=== PATIENT | male | born 1935 | race Caucasian/White ===

== ENCOUNTER → 2016-07-03 | Outpatient (CLI) | payer MEDICARE | LOC: GMAB 12:06 | PROVIDERS: ATTEND Family Medicine | DX: N18.4 Chronic kidney disease, stage 4 (severe) (principal) ==

== ENCOUNTER → 2016-11-14 | Outpatient (CLI) | payer MEDICARE | END | disposition home or self-care (01) | LOC: GMAB 11:34 | PROVIDERS: ATTEND Family Medicine | DX: Z12.5 Encounter for screening for malignant neoplasm of prostate (principal); I10 Essential (primary) hypertension | CPT/HCPCS: 84443; G0103 ==

== ENCOUNTER → 2017-02-06 | Outpatient (CLI) | payer MEDICARE | END | disposition home or self-care (01) | LOC: LAB.O 09:35 | PROVIDERS: ATTEND Internal Medicine Rheumatology | DX: Z79.899 Other long term (current) drug therapy (principal); M15.0 Primary generalized (osteo)arthritis; M81.0 Age-related osteoporosis without current pathological fracture ==

== ENCOUNTER → 2017-04-16 | Outpatient (CLI) | payer MEDICARE ==
--- NOTE | 2017-04-17 07:46 | US ---
EXAM DESCRIPTION: Renal: Ultrasound. CLINICAL HISTORY: RENAL CYST COMPARISON: CT scan of abdomen and pelvis 03/29/2015. TECHNIQUE: Transcutaneous scanning: Two-dimensional and Doppler modes. FINDINGS: Right kidney measures 10.8 x 6.0 x 5.7 cm; mid-renal cortical thickness 13 mm . Increased echogenicity of the cortex more than the liver. 1.7 x 1.5 cm anechoic cyst with well-defined morrell and posterior acoustic enhancement. Another smaller cyst 8mm diameter. 4.3 mm echogenic cortical structure may represent a stone. No hydronephrosis No calcifications. Lobulated contour of the kidney with no perinephric fluid. Normal vascularity. Proximal ureter not visualized. Left kidney measures 10.9 x 7.4 x 6.8 cm; mid-renal cortical thickness 13 mm.. Increased echogenicity of the cortex equal to that of the liver. Multiple cortical cysts: 2.7 x 2.3 cm, 1.8 x 1.9 cm, and a septated cyst measuring 3.0 x 2.9 cm. No hydronephrosis. No calcifications. Lobulated contour of the kidney with no perinephric fluid. Normal vascularity.. Proximal ureter not visualized. Urinary bladder not visualized. Abdominal Aorta diameter not measured. IMPRESSION: 1. Bilateral kidneys show increased cortical echogenicity and lobulated capsule. Minimal atrophy in the right cortex. 2. Bilateral renal cysts. Septated cyst in the left kidney does not appear calcified on prior CT scan. CT scan be repeated clinically indicated. 3. Possible 4.3 mm stone in the right kidney. Electronically signed by: Guille Walden MD 04/17/2017 7:44 AM CDT
== END | disposition home or self-care (01) ==
LOC: US 08:13
PROVIDERS: ATTEND Urology
DX: N28.1 Cyst of kidney, acquired (principal)

== ENCOUNTER → 2017-10-01 | Outpatient (CLI) | payer MEDICARE | LOC: GMAB 11:06 | PROVIDERS: ATTEND Family Medicine | DX: N18.4 Chronic kidney disease, stage 4 (severe) (principal) ==

== ENCOUNTER → 2018-08-13 | Outpatient (CLI) | payer MEDICARE | LOC: LAB.O 07:20 | PROVIDERS: ATTEND Internal Medicine Rheumatology | DX: M15.0 Primary generalized (osteo)arthritis (principal); M81.0 Age-related osteoporosis without current pathological fracture; Z79.899 Other long term (current) drug therapy ==

== ENCOUNTER → 2019-07-01 | Outpatient (CLI) | payer MEDICARE, OTHER | LOC: LAB.O 07:09 | PROVIDERS: ATTEND Family Medicine | DX: I10 Essential (primary) hypertension (principal); E78.5 Hyperlipidemia, unspecified; R53.83 Other fatigue ==

== ENCOUNTER → 2020-02-24 | Outpatient (CLI) | payer MEDICARE, OTHER ==
--- NOTE | 2020-02-24 21:09 | RAD ---
EXAM DESCRIPTION: Lumbar Spine 3 Views CLINICAL HISTORY: LOW BACK PAIN COMPARISON: None Available. TECHNIQUE: Three views lumbar spine FINDINGS: Three views of the spine demonstrate normal alignment with marked degenerative disc narrowing and vacuum phenomenon involving the lower four disc spaces and less severe changes noted at L1-2. Previous prostatic seeding noted. There is grade 1 degenerative anterolisthesis at L4-5 estimated at approximately 5 mm and a similar amount of retrolisthesis evident at the L3-4 level. Marked facet sclerosis at L5-S1 L4-5 and to a lesser degree L3-4 noted. SI joints are unremarkable. No additional abnormalities noted. 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 Marked disc narrowing and vacuum phenomenon at the lower four disc spaces noted. Electronically signed by: Jae Liu MD 02/24/2020 9:07 PM CDT
== END ==
LOC: YCFC.O 10:24
PROVIDERS: ATTEND Family Medicine
DX: M51.36 Other intervertebral disc degeneration, lumbar region (principal); M47.896 Other spondylosis, lumbar region; M43.16 Spondylolisthesis, lumbar region; M51.86 Other intervertebral disc disorders, lumbar region

== ENCOUNTER → 2020-03-13 | Outpatient (CLI) | payer MEDICARE, OTHER ==
--- NOTE | 2020-03-14 07:27 | CT ---
TECHNIQUE: Axial images of the lumbar spine were obtained with multiple reconstructions provided. This exam was performed according to our departmental dose-optimization program, which includes automated exposure control, adjustment of the mA and/or kV according to patient size and/or use of iterative reconstruction technique. CLINICAL HISTORY PROVIDED: RADICULOPATHY LUMBAR REGION COMPARISON: 03/29/2015 FINDINGS: Five lumbar type vertebral bodies are present. Alignment: Degenerative grade 1 anterolisthesis L4 on L5. Fracture: None present. Paraspinal Soft Tissues/ Retroperitoneum: Bilateral renal cysts. L1/2: Posterior disc space narrowing. Small symmetric disc bulge. Mild, left greater than right neural foraminal narrowing. No significant central canal stenosis. Bilateral facet hypertrophy. L2/3: Disc space narrowing with endplate degenerative change and vacuum disc phenomenon. Diffuse symmetric disc bulge osteophyte complex. Severe central canal stenosis. Bilateral facet hypertrophy with thickening of the ligamentum flavum. Moderate bilateral neural foraminal narrowing. L3/4: Disc space narrowing with endplate degenerative change and vacuum disc phenomenon. Diffuse symmetric disc bulge osteophyte complex. Severe central canal stenosis. Bilateral facet hypertrophy with thickening of the ligamentum flavum. Moderate to severe bilateral neural foraminal narrowing. L4/5: Disc space narrowing with endplate degenerative change and vacuum disc phenomenon. Moderate bilateral neural foraminal narrowing. Diffuse symmetric disc bulge osteophyte complex. Severe central canal stenosis. Bilateral facet hypertrophy with thickening of the ligamentum flavum. L5/S1: Disc space narrowing with endplate degenerative change and vacuum disc phenomenon. Diffuse symmetric disc bulge osteophyte complex. Severe bilateral neural foraminal narrowing. No significant central canal stenosis. Bilateral facet hypertrophy. IMPRESSION: Marked multilevel lumbar spondylosis as above. Electronically signed by: Luis Eduardo Orosco MD 03/14/2020 7:25 AM CDT
== END ==
LOC: CT 12:53
PROVIDERS: ATTEND Family Medicine
DX: M47.26 Other spondylosis with radiculopathy, lumbar region (principal)

== ENCOUNTER 2020-04-03 05:12 | Day surgery (SDC) | payer MEDICARE, OTHER ==
[2020-04-03] MEDS ORDERED: LIDOCAINE 1% 10 ML VIAL INJ ONE (07:12)
[2020-04-03] MEDS ORDERED: BUPIVACAINE 0.5% 30 ML VIAL INJ ONE (07:12)
[2020-04-03] MEDS ORDERED: BETAMETHASONE ACETATE/BETAMETH 6 MG/ML VIAL IM ONE ×2 (11:50→12:09)
== END 2020-04-03 12:15 | disposition home or self-care (01) ==
LOC: AMB 05:12
PROVIDERS: ATTEND Family Medicine Sports Medicine
DX: M47.896 Other spondylosis, lumbar region (principal); M54.5 Low back pain; M17.0 Bilateral primary osteoarthritis of knee; I10 Essential (primary) hypertension; N40.0 Benign prostatic hyperplasia without lower urinary tract symptoms; M81.0 Age-related osteoporosis without current pathological fracture; M06.9 Rheumatoid arthritis, unspecified; F03.90 Unspecified dementia, unspecified severity, without behavioral disturbance, psychotic disturbance, mood disturbance, and anxiety; N28.9 Disorder of kidney and ureter, unspecified; Z88.8 Allergy status to other drugs, medicaments and biological substances; Z79.82 Long term (current) use of aspirin; Z79.899 Other long term (current) drug therapy